=== PATIENT | female | born 1980 | race Caucasian/White ===

== ENCOUNTER 2021-10-20 19:40 | Emergency (ER) | payer MEDICARE, OTHER ==
[2021-10-20 20:32] LABS: HEMOGLOBIN 12.6 gm/dl (12.3-15.3); RED BLOOD COUNT 4.03 M/UL (4.00-5.10); WHITE BLOOD COUNT 7.7 K/UL (4.5-11.0)
[2021-10-20 22:00] LABS: BUN/CREATININE RATIO 13 (0-10)
== END 2021-10-21 11:33 | disposition home or self-care (01) ==
LOC: ER1 19:40
PROVIDERS: Family Medicine
DX: F32.9 Major depressive disorder, single episode, unspecified (principal); F10.10 Alcohol abuse, uncomplicated; Z88.0 Allergy status to penicillin
CPT/HCPCS: 71045; 80053; 80307; 81001; 82550; 82553; 84484; 85025; 93005; 99284; G0480